=== PATIENT | female | born 1955 | race Caucasian/White ===

== ENCOUNTER 2023-09-27 11:09 | Inpatient (IN) | payer OTHER, MEDICARE, SELFPAY ==
[2023-09-26] VITALS (9 sets, daily range): BP systolic 141–182; BP diastolic 80–96
[2023-09-26 19:01] LABS: % Basophils 0.7 % (0-2); % Eosinophils 4.4 % (0-6); % Immature Granulocytes 0.4 % (0-0.5); % Lymphocytes 26.4 % (20.5-51.1); % Monocytes 10.3 % (1.7-9.3); % Neutrophils 57.8 % (42.2-75.2); Absolute Basophils 0.1 10^3/uL (0-0.2); Absolute Eosinophils 0.3 10^3/uL (0-0.7); Absolute Lymphocytes 1.9 10^3/uL (1.2-3.4); Absolute Monocytes 0.8 10^3/uL (0.1-0.6); Absolute Neutrophils 4.2 10^3/uL (1.4-6.5); Hematocrit 38.2 % (37.0-47.0); Hemoglobin 13.3 g/dL (12.0-16.0); Mean Corp Hgb Conc. 34.8 g/dL (33.0-37.0); Mean Corpuscular Hgb 31.2 pg (27.0-31.0); Mean Corpuscular Volume 89.7 fL (81.0-99.0); Mean Platelet Volume 10.7 fL (7.4-10.4); Nucleated Red Blood Cells % 0 %; Platelet Count 252 10^3/uL (130-400); Red Blood Cell Count 4.26 10^6/uL (4.20-5.40); Red Cell Dist. Width 12.5 % (11.5-14.5); White Blood Cell Count 7.3 10^3/uL (4.8-10.8)
[2023-09-26 19:12] LABS: D-Dimer 0.31 ug/mlFEU (0.00-0.50)
[2023-09-26 19:13] LABS: ALT (SGPT) 20 U/L (0-35); AST (SGOT) 21 U/L (14-36); Albumin 4.2 g/dl (3.5-5.0); Alkaline Phosphatase 44 U/L (38-126); Blood Urea Nitrogen 24 mg/dl (7-17); Calcium 9.8 mg/dl (8.4-10.2); Carbon Dioxide 28 mmol/L (22-30); Chloride 102 mmol/L (98-107); Glucose 207 mg/dl (70-99); Lipase 84 U/L (23-300); Potassium 4.2 mmol/L (3.5-5.1); Sodium 139 mmol/L (135-145); Total Bilirubin 0.4 mg/dl (0.2-1.3); Total Protein 6.6 g/dl (6.3-8.2); eGFR > 60.00
[2023-09-26 19:22] LABS: Troponin I < 0.012 ng/ml
[2023-09-26 21:37] LABS: Troponin I < 0.012 ng/ml
--- NOTE | 2023-09-26 22:18 | ED.GENMED ---
History of Present Illness
General
Chief Complaint: Chest Pain
Source: patient and spouse
Exam Limitations: none
Time Seen by Provider: 09/26/23 18:15
Nursing documentation reviewed up to this point in time: agreed with
Travel History
Have you had any contact with someone who has COVID-19?: No
Do you have any symptoms of coronavirus? Fever > 100 degrees, chills, cough, shortness of breath, sore throat, loss of taste or smell, muscle aches, or headache?: No
History of Present Illness
History of Present Illness:
68-year-old female with a past medical history of diabetes, hyperlipidemia, obesity who presents to the emergency department with her for evaluation of chest pain. Patient reports onset of symptoms over the past few weeks and they have been
intermittent. Over the past 2 days she says that symptoms have been lasting longer and more intense. She describes a pressure sensation in the left chest that radiates towards her scapula and her left arm. She reports symptoms being triggered
with exertion particular when she walks up the stairs. She denies any associated shortness of breath. She denies any cough. Denies any fevers or chills. She denies any edema in her legs. Denies any GI symptoms. She says she is never had
similar symptoms in the past. She denies any known personal cardiac history and has never seen a fitting room checker. She does report that she has a very strong family history of coronary artery disease and AR.
Past History
Past History
ED Past Medical History: None
ED Past Surgical History: None
Social History
Tobacco: Non-smoker
Review of Systems
Review of Systems
All Other Systems: ROS reviewed and negative except as documented in HPI and ROS
Constitutional: Denies fever or chills
EENT: Denies sore throat or runny nose
Respiratory: Denies cough or trouble breathing
Cardiac: Reports chest pain; Denies palpitations or syncope
ABD/GI: Denies abdominal pain, nausea, vomiting or diarrhea
: Denies flank pain
Musculoskeletal: Denies edema, neck pain or back pain
Neurological: Denies dizzy or headache
Phy Exam
Physical Exam
Physical Exam:
General: Awake, alert, oriented x3; no acute distress
Head: Normocephalic, atraumatic
Eyes: Conjunctiva normal, EOMI
Throat: Airway intact, handling secretions
Neck: Trachea midline, supple without meningismus
Lungs: Clear to auscultation bilaterally, no wheezing, rales, rhonchi
Heart: Regular rate and rhythm, no murmurs, gallops, or rubs
Abd: Soft, non distended, nontender
Neuro: Cranial nerves grossly intact, speech fluid
Skin: no rash
Extremities: No edema in extremities, equal pulses in all extremities
Scores
Heart Failure Risk
Heart Failure Risk Score: Not Applicable
Heart Score for Chest Pain Patients
STEMI patient?: No
History: Moderately Suspicious
ECG: Normal
Age: >/= 65 years
Risk Factors: >/= 3 Risk Factors or History of CAD
Troponin: </= Normal Limit
Heart Score for Chest Pain Patients: 5
Heart Score Risk: 20.3% MACE over next 6 weeks
Withdrawal Assessment of Alcohol
Withdrawal Assessment Completed?: Not applicable
Course
Orders/Labs/Results
Orders:
Orders
09/26/23 17:29
EKG [Electrocardiogram (*1)] Urgent
Reason for Study: Chest Pain
EKG- Treatment ONCE
09/26/23 18:46
CR Chest - 2 Views Urgent
Comment:
Reason For Exam: cp
09/26/23 18:49
Complete Blood Count/With Diff Urgent
Comprehensive Metabolic Panel Urgent
D-Dimer Urgent
Lipase Urgent
Troponin I Urgent
09/26/23 21:06
Troponin I Urgent
09/26/23 22:59
Admit/Transfer Patient As Directed
Co-Sign Provider:
Level of Care: Observation services
Assign to:: Telemetry
Physician / Group: elsa stern
Diagnosis: chest pain
Reason for Telemetry: Chest Pain syndromes
Date to Stop Telemetry: 09/28/23
Time to Stop Telemetry: 11:00
09/26/23 23:00
Code Status As Directed
Resuscitation Status: Full Code
09/28/23 11:00
DC Protocol for Telemetry ONCE
Abnormal Lab Results
09/26/23
18:49
MCH 31.2 H pg
(27.0-31.0)
MPV 10.7 H fL
(7.4-10.4)
Absolute Monos (auto) 0.8 H 10^3/uL
(0.1-0.6)
Monocytes % 10.3 H %
(1.7-9.3)
BUN 24 H mg/dl
(7-17)
Creatinine 0.5 L mg/dL
(0.6-1.0)
Glucose 207 H mg/dl
(70-99)
09/26/23 18:49
09/26/23 18:49
Vital Signs
Initial and Last Documented VS:
Initial Vital Signs
Temp Pulse Resp BP Pulse Ox
36.8 C 90 18 154/85 97
09/26/23 17:26 09/26/23 17:26 09/26/23 17:26 09/26/23 17:26 09/26/23 17:26
Last Documented Vital Signs
Temp Pulse Resp BP Pulse Ox
36.8 C 86 20 153/80 95
09/26/23 17:26 09/26/23 23:19 09/26/23 23:19 09/26/23 23:00 09/26/23 23:19
MDM/Problems Addressed
Differential Diagnosis Includes:
Angina/AR, GERD, costochondritis, pneumothorax pneumonia, PE
MDM/Problems Addressed:
68-year-old female presents for evaluation of chest pain over the past few weeks that is increasing in frequency and severity. There is an exertional component she says. Hypertensive but otherwise normal vitals. Physical exam as above. She is
currently chest pain-free. EKG shows no STEMI. Will place an IV check labs including CBC and CMP, troponin's. Check a chest x-ray. Will check a D-dimer. Will monitor on telemetry. Reassess after the above.
CBC unremarkable, CMP no clinically significant abnormalities. Her D-dimer is negative. Troponin negative x 2. Chest x-ray shows no acute disease. Although troponins are undetectable her story is somewhat worrisome for anginal chest pain and she
has HEART score of 5. Case discussed with cardiology recommended admission to the hospital service will plan for inpatient stress test. Case discussed with hospitalist for admission.
Chronic conditions affecting care:
Diabetes, hyperlipidemia, obesity�higher risk for cardiac disease
Acute Exacerbation and/or Progression of Chronic Illness:
Acutely hypertensive
Acute Exacerbation and/or Progression of Chronic Illness: HTN
*Radiology
Radiology exam reviewed: preliminary read by ED provider (No acute disease on chest x-ray) and radiology read reviewed
*Pulse Oximetry
Patient hypoxic: no
*EKG
Interpreted by ED Provider?: Yes
Heart Rate: 90
Rate: normal
Rhythm: sinus
[place]: normal axis
Interval: normal interval
QRS Pattern: normal QRS
Ischemia: no ischemia
*Critical Care Note
Total Time (30-74mins, 75-104mins- exclusive of procedures): Not Applicable
Data Reviewed
Source: patient, records and spouse
Patient Management
Discussion with other providers: Hospitalist (Discussed with hospitalist) and Sprinkling System Installer (Discussed with cardiology)
Escalation/DeEscalation of care consider admission/obs:
Admission indicated
ED Attending Note
-
Portions of this chart may have been created with voice recognition software.� Occasional wrong word or��sound alike� substitutions may have occurred due to the inherent limitations of voice recognition software.
Discharge Plan
Departure
Patient Disposition: Admit
Date of Disposition: 09/26/23
Time of Disposition: 22:48
Admit to doctor: Kamaljit
Presentation/result/management discussed w/ accepting MD/DO: Hospitalist
Patient with high blood pressure during this ER visit?: Yes
Discharge Problem:
Chest pain
Interventions
Interventions:
*General Assessment Last Done: 09/26/23 17:26
ED- Fall Risk Assessment Last Done: 09/26/23 18:40
*ED COVID-19 Vaccine History Last Done: 09/26/23 17:26
ED- Cardiac Assessment Last Done: 09/26/23 18:40
--- NOTE | 2023-09-26 22:37 | HPS.HSE ---
Family Physician
-
Family Physician: Awilda Jacinto
Chief Complaint
-
chest pain
History of Present Illness
68 year old with pMH hypothyroidism, GERD, Type 2 Dm presented to us with left sided chest pain radiating to neck, back, left upper arm, shoulder for past few weeks. it progressive got worse. was taking Aleve with some relief in her symptoms. today
she felt some burning sensation in mid sternum. she gets pain even with rest. took Tums with some relief. stated WATSON. denied dizzy or syncopal episode. denied fever, chills. denied abdominal pain, n,v,d. denied dysuria or hematuria.
chest x ray negative. trop negative. admitting for stress test on Thursday.
Medical History
Past Medical History
Past Medical History: Reports Other
Additional Past Medical History:
hypothyroidism
type 2 Dm
hld
Past Surgical History: Reports Other
Additional Past Surgical History:
c section
tonsillectomy
Social History
Tobacco: Non-smoker
Alcohol: None
Drug: None
Personal:
Living: With Family
Family History
Family History: Not pertinent
Allergies / Home Medications
Allergies reflects when Allergies were last updated in [facility].
Home Medications with original date entered in [facility]
Allergy/Medication List:
Allergies
Allergy/AdvReac Type Severity Reaction Status Date / Time
No Known Allergies Allergy Unverified 08/19/15 21:24
Home Medications
aspirin 325 mg tablet 325 mg PO DAILY 09/26/23
cetirizine 10 mg tablet (Zyrtec) 10 mg PO DAILY 09/26/23
famotidine 10 mg tablet (Pepcid AC) 10 mg PO DAILY 09/26/23
levothyroxine 112 mcg tablet (Synthroid) 112 mcg PO DAILY 09/26/23
metformin 500 mg tablet 500 mg PO BID 09/26/23
rosuvastatin 5 mg tablet 5 mg PO DAILY 09/26/23
Review of Systems
-
Constitutional: Reports No Symptoms
EENT: Reports No Symptoms
Respiratory: Reports No Symptoms
Cardiac: Reports Chest Pain
Abdomen/GI: Reports No Symptoms
: Reports No Symptoms
Musculoskeletal: Reports No Symptoms
Skin: Reports No Symptoms
Neurological: Reports No Symptoms
Endocrine: Reports No Symptoms
Hematologic/Lymphatic: Reports No Symptoms
Psych: Reports No Symptoms
Physical Exam
Vital Signs
Vital Signs
Temp Pulse Resp BP Pulse Ox
98.3 F 84 16 154/91 95
09/26/23 17:26 09/26/23 20:45 09/26/23 20:45 09/26/23 20:15 09/26/23 20:45
Physical Exam
General: Well Developed, Well Nourished and No Apparent Distress
HEENT: NormoCephalic, Moist mucous membranes and Atraumatic
Respiratory: Clear
Cardiac: S1/S2 and Regular Rhythm; No Murmur or Rub
GI: Soft, Non Tender, Non Distended and Normal Bowel Sounds; No Organomegaly
Rectal: Deferred by Provider
Musculoskeletal: No Clubbing, No Cyanosis and No Edema
Skin: No Rash
Neuro: AO x 3 and Nonfocal/grossly intact
Psych: Calm
Laboratory Results
-
09/26/23 18:49
09/26/23 18:49
Laboratory Results
Total Bilirubin 0.4 mg/dl (0.2-1.3) 09/26/23 18:49
AST 21 U/L (14-36) 09/26/23 18:49
ALT 20 U/L (0-35) 09/26/23 18:49
Alkaline Phosphatase 44 U/L (38-126) 09/26/23 18:49
Troponin I < 0.012 ng/ml 09/26/23 21:06
Lipase 84 U/L (23-300) 09/26/23 18:49
Data Reviewed
-
Diagnostic Radiology: Report Reviewed by me
Lab Data: Labs Reviewed by me
Impression/Plan
-
#chest pain with exertion r/o ACS
-trend trop
-plan for stress test on Thursday
-cardiology consulted
-chest x ray with No active cardiopulmonary disease.
-EKG with NSR
#hypothyroidism
-levothyroxine continued
#Type 2 Dm
-sliding scale
-check blood sugar
-daily bgm
-hold metformin
#HLD
-Crestor continued
#DVT prophylaxis
-lovenox
#CODE status
-full code
--- NOTE | 2023-09-26 22:52 | W.PN.UPDATE ---
Update Note
Progress Note Update
This note serves as an addendum to the H&P by automation technician BETHEL Lisa GERONIMO
HPI
68F PMHX of DMT2, Hypothyroid , HLDseen at ER for evaluation of Lt sided CP
- described as CP , also back pain and Lt arm pain for few weeks
- initially intermittent and waxing and waning
- becomes persist tent over last 2 days
- also noted WATSON and fatigue
- Denied diaphoresis
- denied palpitation
- Denied fever
- Not much improved with Aleve
- somewhat worsened CP with climbing steps
Other complaints include mid sternum CP relieve by TUMS
Noted hi BP at ER
- no prior HX HTN
PMHX: DMT2, Hypothyroid , HLD
PSHX: Tonsillectomy
Allergies
Allergy/AdvReac Type Severity Reaction Status Date / Time
No Known Allergies Allergy Unverified 08/19/15 21:24
Home Medications
aspirin 325 mg tablet 325 mg PO DAILY 09/26/23
cetirizine 10 mg tablet (Zyrtec) 10 mg PO DAILY 09/26/23
famotidine 10 mg tablet (Pepcid AC) 10 mg PO DAILY 09/26/23
levothyroxine 112 mcg tablet (Synthroid) 112 mcg PO DAILY 09/26/23
metformin 500 mg tablet 500 mg PO BID 09/26/23
rosuvastatin 5 mg tablet 5 mg PO DAILY 09/26/23
SHX;
Tobacco: Non-smoker
Reviewed VS: noted for BP 180/90 ---> 154/91 HR 80s POx mid 90s
PE
Gen: not toxic , NAD
HEENT: anicteric, no pallor
Neck: supple
Lungs: CTA
Cor: RRR S1 S2
Abdomen: benign exam
GAS STATION MANAGER: AAO3 , NFND
MS: no edema
Psych:appropriate
Data
Unremarkable CBC
BUN 24
Cr 0.5
eGFR > 60
BG 207
TPNI < 0.012
EKG:
NORMAL SINUS RHYTHM
NORMAL ECG
NO PREVIOUS ECGS AVAILABLE
CXR: No active cardiopulmonary disease.
NO PRIOR hospitalist admission:
ASSESSMENT & PLAN
Persistent CP with exertion
- atypical for cardiac origin DDX: musculoskeletal origin
- unremarkable EKG
- NEG TPNI
- Trend TPNI and EKG
- Empiric baby ASA
- check Lipids
- CBC card consult
HLD
- cont. SLOT SUPERVISOR Statin
DMT2
- held Metformin
- add ISS low
Hypothyroid
- cont PT LT4
Hi BP
No prior HX of HTN
- add IV Hydralazine PRN
- f/u BP
DVT Px: LMWH
Code: Full code
Obs TLM
[2023-09-27] VITALS (26 sets, daily range): BP systolic 109–164; BP diastolic 64–90; BMI 36.6
--- NOTE | 2023-09-27 00:05 | PTCARENOTE ---
Pt arrived from ED via stretcher and ambulated to bed. Pt is AAOx3, VSS, and w/o complaints of pain. Pt is resting comfortably w/ call verma within reach.
[2023-09-27 03:30] LABS: Hematocrit 39.2 % (37.0-47.0); Hemoglobin 13.3 g/dL (12.0-16.0); Mean Corp Hgb Conc. 33.9 g/dL (33.0-37.0); Mean Corpuscular Hgb 31.5 pg (27.0-31.0); Mean Corpuscular Volume 92.9 fL (81.0-99.0); Mean Platelet Volume 10.6 fL (7.4-10.4); Platelet Count 242 10^3/uL (130-400); Red Blood Cell Count 4.22 10^6/uL (4.20-5.40); Red Cell Dist. Width 12.4 % (11.5-14.5); White Blood Cell Count 7.1 10^3/uL (4.8-10.8)
[2023-09-27 03:53] LABS: Blood Urea Nitrogen 18 mg/dl (7-17); Carbon Dioxide 25 mmol/L (22-30); Chloride 103 mmol/L (98-107); Estimated Creatinine Clearance 103 ml/min; Glucose 314 mg/dl (70-99); HDL Cholesterol 57 mg/dl; LDL Cholesterol, Calculated 107 mg/dl; Sodium 137 mmol/L (135-145); Total Cholesterol 211 mg/dl (50-199); Triglyceride 239 mg/dl (10-149); Very Low Density Lipoprotein 47 mg/dl (0-30); eGFR > 60.00
[2023-09-27 03:55] LABS: Troponin I 0.015 ng/ml
[2023-09-27] MEDS: SYNTHROID 112 MCG PO (06:33)
[2023-09-27 07:31] LABS: Glucose - Point of Care 186 mg/dl (70-99)
[2023-09-27] MEDS: NOVOLOG FLEXPEN-LOW RESISTANCE 1 UNITS SC ×2 (07:56→17:19)
[2023-09-27] MEDS: HEPARIN 5000 UNITS SC (07:56)
[2023-09-27] MEDS: CRESTOR 5 MG PO ×2 (07:56→11:17)
[2023-09-27] MEDS: LOW STRENGTH ASPIRIN 81 MG PO (07:56)
--- NOTE | 2023-09-27 08:10 | PTCARENOTE ---
Pt. with c/o 5/10 left chest pain and left arm pain. No pain medication is ordered at this time. Dr. Chirinos made aware via tiger text. Pt. NSR on telemonitor.
[2023-09-27 08:22] LABS: Troponin I 0.035 ng/ml
--- NOTE | 2023-09-27 08:25 | PTCARENOTE ---
Critical lab value, troponin 0.035, Dr. sadler made aware via tiger text. No new orders at this time.
[2023-09-27 09:54] LABS: Glycohemoglobin (HgbA1c) 7.9 % (4.0-5.6)
--- NOTE | 2023-09-27 10:09 | W.PN.HOSP.TC ---
Today's Communication/Plan
-
see bold
Assessment / Plan
Assessment / Plan
Gen: NAD, AAOx3.
Eyes: EOMI, PERRLA, no scleral icterus.
Neck: supple.
CV: RRR, +S1/S2, no m/r/g.
Resp: CTAB, no rales, wheezes, or rhonchi.
Abd: +BS, soft, NT, ND
Skin: No rashes.
Neuro: CN 2-12 intact, non-focal.
Psych: Normal mood and affect.
CXR: No active cardiopulmonary disease.
L-sided CP:
-trend trops (0.015, 0.035)
-Appears to be type II NSTEMI. Start heparin gtt, NTG gtt. Likely cath tomorrow.
-discussed at length with Dr. Sherman
-latest ECG (read by me): NSR @ 86, nl axis/intervals (QTc borderline at 452ms), no acute ST/TW changes
-cont ASA/statin
-start Toprol XL
Other problems:
DM2: SSI/accuchecks
Hypothyroidism: cont Levoxyl
Hyperlipidemia: cont statin
Obesity due to excess calories
RN and updated.
FULL/Lovenox
Total time spent on today's encounter was 50 minutes which included time spent in counseling the patient/family regarding diagnosis and treatment plan as listed above, goals of care, and symptom management. Case was discussed with nursing staff,
specialists, and care coordinators/case management. All labs and imaging personally reviewed by me. Remainder the time spent in detailed review of previous records, lab data, imaging, and other medical provider documentation.
Anticipated Discharge: 24 - 48 hours
Subjective/Interval History
-
Date of Service: September 27, 2023
Objective Data
-
Labs:
Laboratory Results
09/27/23
03:14
WBC 7.1
Hgb 13.3
Hct 39.2
Plt Count 242
Sodium 137
Potassium 4.0
Chloride 103
Carbon Dioxide 25
BUN 18 H
Creatinine 0.5 L
Glucose 314 H
Calcium 10.0
Vital Signs:
Vital Signs
Temp Pulse Resp BP Pulse Ox
98.3 F 78 16 152/77 95
09/27/23 07:07 09/27/23 07:07 09/27/23 07:07 09/27/23 07:07 09/27/23 07:07
I&O
09/26/23 09/27/23 09/28/23
06:59 06:59 06:59
Output Total 500 / 500
Balance -500 / -500
--- NOTE | 2023-09-27 10:55 | PTCARENOTE ---
Pt. still c/o 07/28 left chest pain/pressure and left arm pain at this time. Dr. Barone made aware at this time. Orders to follow.
[2023-09-27] MEDS: NITROSTAT (SUBLINGUAL) 0.400000000000000022 MG SL (11:15)
--- NOTE | 2023-09-27 11:15 | PTCARENOTE ---
Sublingual Nitro given as ordered. Chest pain went from a 07/28 to 2. Pt. c/o headache post Nitro dose. VSS.
[2023-09-27] MEDS: CRESTOR 10 MG PO (11:17)
--- NOTE | 2023-09-27 11:17 | CON.CAR ---
Consultation
Consultation Request
Date/Time Consultation Requested: 09/27/2023
Date/Time Consultation Performed: 09/27/2023
Requesting Provider: Dr. Chirinos
Performing Provider: Dr. Sherman
Reason for Consultation: Chest pain
Medical History
-
Chief Complaint: Chest pain
History of Present Illness:
68-year-old female with hyperlipidemia, diabetes, hypothyroidism, obesity, and very strong family history of coronary artery disease presenting with progressive chest pain over the past 2 weeks. The patient states that she has been experiencing
left-sided chest pain/achiness that is worse with exertion (walking upstairs); it goes away with rest after several minutes. There is associated shortness of breath when she gets to the top of the stairs. All 4 grandparents, both of her parents,
and 2 brothers all had coronary artery disease, several requiring CABG.
Past Medical History
Past Medical History: Hypercholesterolemia, Hypothyroidism and NIDDM
Past Surgical History: and Tonsilectomy
Social History
Tobacco: Non-Smoker
Alcohol: None
Drug: None
Personal:
Living: With Family
Family History
Family History: Early CAD (All 4 grandparents, both parents, and 2 brothers)
Allergies / Home Medications
Allergy/AdvReac Type Severity Reaction Status Date / Time
No Known Allergies Allergy Unverified 08/19/15 21:24
�Medication �Instructions �Recorded �Confirmed �Type
aspirin 325 mg tablet 325 mg PO DAILY Heart 09/26/23 09/26/23 History
Disease/Condition
cetirizine 10 mg tablet (Zyrtec) 10 mg PO DAILY Allergies 09/26/23 09/26/23 History
famotidine 10 mg tablet (Pepcid AC) 10 mg PO DAILY Gastrointestinal 09/26/23 09/26/23 History
Issue
levothyroxine 112 mcg tablet 112 mcg PO DAILY Thyroid 09/26/23 09/26/23 History
(Synthroid)
metformin 500 mg tablet 500 mg PO BID Diabetes 09/26/23 09/26/23 History
rosuvastatin 5 mg tablet 5 mg PO DAILY High Cholesterol 09/26/23 09/26/23 History
Review of Systems
-
History Source: Patient
All other systems: Negative unless noted
Physical Exam
Vital Signs
Temp Pulse Resp BP Pulse Ox
98.3 F 92 16 164/83 95
09/27/23 07:07 09/27/23 11:15 09/27/23 07:07 09/27/23 11:15 09/27/23 07:07
Lab Results
09/27/23 03:14
Troponin I 0.035 ng/ml H* D 09/27/23 07:36
Physical Exam
General: No Apparent Distress and Comfortable
HEENT: Normocephalic
Respiratory: Clear
Cardiac: S1/S2 and Regular Rhythm
Breast: Deferred by me
GI: Soft and Non Tender
Rectal: Deferred by Provider
Musculoskeletal: No Clubbing, No Cyanosis and No Edema
Skin: Warm and Dry
Neuro: AO x 3
Psych: Calm
Impression / Plan
-
68-year-old female with hyperlipidemia, diabetes, hypothyroidism, obesity, and very strong family history of coronary artery disease presenting with progressive chest pain over the past 2 weeks. The patient states that she has been experiencing
left-sided chest pain/achiness that is worse with exertion (walking upstairs); it goes away with rest after several minutes. There is associated shortness of breath when she gets to the top of the stairs. All 4 grandparents, both of her parents,
and 2 brothers all had coronary artery disease, several requiring CABG.
ACS/UA/NSTEMI:
-The patient has recurrent chest pain this a.m.; troponin is now mildly increasing, which appears to be consistent with an NSTEMI.
-Has significant risk factors for heart disease as outlined above.
-Will start the patient on a heparin drip and nitroglycerin drip.
-Will start Toprol-XL 25 mg daily.
-Will increase rosuvastatin from 5 mg daily to 20 mg daily.
-Discussed with Hospitalist; patient will be transferred to IVU.
-Will arrange cardiac catheterization for tomorrow morning; n.p.o. after midnight.
-Echocardiogram tomorrow.
Hypertension--new diagnosis:
-Adding Toprol-XL as above; will medically optimized throughout hospitalization.
Hyperlipidemia:
-LDL is not at goal (less than 55).
-Increasing rosuvastatin from 5 mg to 20 mg daily.
Diabetes:
-Hemoglobin A1c 7.9%.
-Management as per primary Hospitalist.
Hypothyroidism:
-On Synthroid; management as per primary Hospitalist.
Obesity:
-Weight loss recommended.
Data Reviewed
-
EKG: Tracing Personally Visualized and interpreted (Sinus rhythm)
Labs: Labs Reviewed by me and Discussed with Physician (Primary Hospitalist)
[2023-09-27] MEDS: TOPROL XL 25 MG PO (11:19)
[2023-09-27] MEDS: LOW STRENGTH ASPIRIN 324 MG PO (11:28)
[2023-09-27 11:34] LABS: Glucose - Point of Care 228 mg/dl (70-99)
[2023-09-27] MEDS: NOVOLOG FLEXPEN-LOW RESISTANCE 2 UNITS SC (11:35)
[2023-09-27 11:39] LABS: Hematocrit 39.2 % (37.0-47.0); Hemoglobin 13.4 g/dL (12.0-16.0); Mean Corp Hgb Conc. 34.2 g/dL (33.0-37.0); Mean Corpuscular Hgb 31.7 pg (27.0-31.0); Mean Corpuscular Volume 92.7 fL (81.0-99.0); Mean Platelet Volume 10.4 fL (7.4-10.4); Platelet Count 229 10^3/uL (130-400); Red Blood Cell Count 4.23 10^6/uL (4.20-5.40); Red Cell Dist. Width 12.3 % (11.5-14.5)
--- NOTE | 2023-09-27 11:45 | PTCARENOTE ---
Report called to IVU GEOFF Aburto. Pt. and updated with plan to transfer pt. to room 2244.
[2023-09-27 11:49] LABS: APTT 25.2 Sec (23.4-35.0)
--- NOTE | 2023-09-27 12:00 | PTCARENOTE ---
Pt. transferred with all belongings to [facility]. Pt. stable at time of transfer. Chest pain now at a 04/29.
[2023-09-27] MEDS: HEPARIN 25000 UNITS/250 ML IV (12:19)
[2023-09-27] MEDS: HEPARIN 4000 UNITS IV (12:26)
[2023-09-27] MEDS: NITROGLYCERIN PREMIX 250 IV (12:29)
--- NOTE | 2023-09-27 12:46 | PTCARENOTE ---
Received patient from to 2243 with c/o chest pain and positive troponin. Oriented to room and plan of care. Given heparin bolus and infusion started at 1000 units/hr. Patient rates chest pain presently as a /10, started on NTG gtt at 5mcg/min.
SR on the monitor, assisted to the bedside commode to move her bowels. at the bedside, call verma in reach.
[2023-09-27 14:45] LABS: Troponin I 0.088 ng/ml
[2023-09-27 17:19] LABS: Glucose - Point of Care 156 mg/dl (70-99)
--- NOTE | 2023-09-27 18:32 | PTCARENOTE ---
Patient resting in bed, using bedside commode. IV heparin and IV NTG infusing. Patient states pain is a minimal 1/10 mild discomfort left chest, non-radiating and now is 'barely' there. Aware she is to be NPO after midnight for cardiac cath,
at the bedside, call verma in reach.
[2023-09-27 20:10] LABS: APTT 70.2 Sec (23.4-35.0)
[2023-09-27] MEDS: PEPCID 10 MG PO (20:15)
[2023-09-27 20:23] LABS: Troponin I 0.131 ng/ml
[2023-09-27 22:11] LABS: Glucose - Point of Care 163 mg/dl (70-99)
[2023-09-27] MEDS: TYLENOL 650 MG PO (23:26)
--- NOTE | 2023-09-27 23:59 | PTCARENOTE ---
Pt called nursing to room at 2315 stating she was having 5 out of 10 pain chest pain radiating up to jaw and through to back. O2 at 3 lit n/c placed. NTG gtt adjusted as per protocol for CP. Currently infusing at 30 mcq with no change in pain. Pt
also medicated with Tylenol for c/o h/a. B/P stable.
PA made aware Morphine order obtained. awaiting clearance from pharmacy.
[2023-09-28] VITALS (17 sets, daily range): BP systolic 98–145; BP diastolic 62–80; BMI 36.1
[2023-09-28] MEDS: MORPHINE SULFATE 1 MG IV (00:07)
--- NOTE | 2023-09-28 00:41 | PTCARENOTE ---
Pt down to a a pain level of 2 out of 10 after receiving morphine1 mg iv. Pain is no further radiating into jaw just chest and through back. Ntg gtt continued at 30 mcq, Heparin gtt at 1100 unit/hr and O2 at 3 lit n/c. call verma within reach. Pt
stated she wanted to rest and try to fall asleep. PA on unit aware of improved cp after ntg.
--- NOTE | 2023-09-28 03:01 | PTCARENOTE ---
Pt called nursing to room to use bsc. Pain free at present. Ntg continued at 30 mcq. vs and labs completed in addition to ecg. o2 removed per pt request. Pt with hx of allergies and having increased nasal secretions this morning. Pt remains npo for
cath.
[2023-09-28 03:05] LABS: Hematocrit 34.2 % (37.0-47.0); Hemoglobin 12.2 g/dL (12.0-16.0); Mean Corp Hgb Conc. 35.7 g/dL (33.0-37.0); Mean Corpuscular Hgb 31.9 pg (27.0-31.0); Mean Corpuscular Volume 89.3 fL (81.0-99.0); Mean Platelet Volume 10.4 fL (7.4-10.4); Platelet Count 228 10^3/uL (130-400); Red Blood Cell Count 3.83 10^6/uL (4.20-5.40); Red Cell Dist. Width 12.4 % (11.5-14.5); White Blood Cell Count 13.3 10^3/uL (4.8-10.8)
[2023-09-28 03:23] LABS: APTT 64.4 Sec (23.4-35.0); Blood Urea Nitrogen 20 mg/dl (7-17); Calcium 9.5 mg/dl (8.4-10.2); Carbon Dioxide 21 mmol/L (22-30); Chloride 106 mmol/L (98-107); Estimated Creatinine Clearance 103 ml/min; Glucose 223 mg/dl (70-99); Potassium 4.1 mmol/L (3.5-5.1); Sodium 137 mmol/L (135-145); eGFR > 60.00
[2023-09-28 03:33] LABS: Troponin I 0.101 ng/ml
[2023-09-28 07:02] LABS: Glucose - Point of Care 241 mg/dl (70-99)
[2023-09-28] MEDS: NOVOLOG FLEXPEN-LOW RESISTANCE 2 UNITS SC (09:05)
[2023-09-28] MEDS: SYNTHROID 112 MCG PO (09:06)
[2023-09-28] MEDS: LOW STRENGTH ASPIRIN 81 MG PO (09:07)
[2023-09-28] MEDS: PEPCID 10 MG PO (09:07)
[2023-09-28] MEDS: TOPROL XL 25 MG PO (09:08)
--- NOTE | 2023-09-28 09:31 | PTCARENOTE ---
Received patient this morning resting in bed. IV NTG infusing at 30mcg/min, IV heparin infusing at 1200 units/hr. Patient denies chest pain at this time, does have a headache and some mild nausea. Report given to laboratory supervisor, waiting in the
room.
--- NOTE | 2023-09-28 09:34 | W.PN.HOSP.TC ---
Today's Communication/Plan
-
see bold
Assessment / Plan
Assessment / Plan
Gen: NAD, AAOx3.
Eyes: EOMI, PERRLA, no scleral icterus.
Neck: supple.
CV: remains RRR, +S1/S2, no m/r/g.
Resp: remains CTAB, no rales, wheezes, or rhonchi.
Skin: No rashes.
Neuro: CN 2-12 intact, non-focal.
Psych: Normal mood and affect.
CXR: No active cardiopulmonary disease.
Acute type II NSTEMI:
-presented with L-sided CP
-ECG (read by me): NSR @ 86, nl axis/intervals (QTc borderline at 452ms), no acute ST/TW changes
-trops peaked at 0.131
-heparin/NTG gtts started 09/27/23AM
-cardiac cath 09/28/23: PCI to 90% RCA lesion
-cont ASA/statin/BB/Ticagrelor
Other problems:
DM2: SSI/accuchecks
Hypothyroidism: cont Levoxyl
Hyperlipidemia: cont statin
Obesity due to excess calories
RN and updated.
FULL/Lovenox
Anticipated Discharge: Within 24 hours
Subjective/Interval History
-
Date of Service: September 28, 2023
Denies chest pain or shortness of breath.
Objective Data
-
Labs:
Laboratory Results
09/28/23 09/28/23
02:56 09:55
WBC 13.3 H
Hgb 12.2
Hct 34.2 L
Plt Count 228
APTT 64.4 H Pending
Sodium 137
Potassium 4.1
Chloride 106
Carbon Dioxide 21 L
BUN 20 H
Creatinine 0.4 L
Glucose 223 H
Calcium 9.5
Vital Signs:
Vital Signs
Temp Pulse Resp BP Pulse Ox
98.1 F 81 16 121/71 94
09/28/23 06:57 09/28/23 07:30 09/28/23 06:57 09/28/23 06:57 09/28/23 06:57
I&O
09/27/23 09/28/23 09/29/23
06:59 06:59 06:59
Intake Total 827.3 / 827.3
Output Total 500 / 500
Balance -500 / -500 827.3 / 827.3
--- NOTE | 2023-09-28 09:42 | W.PN.CD ---
Today's Communication / Plan
-
Cardiac catheterization today.
Impression / Plan
-
Impression/Plan: 68-year-old female with hyperlipidemia, diabetes, hypothyroidism, obesity, and very strong family history of coronary artery disease presenting with progressive exertional chest pain and NSTEMI.
#NSTEMI:
-Acute.
-The patient has recurrent chest pain overnight, resolved with nitro gtt.
-Troponin peaked at 0.131.
-Numerous significant risk factors for heart disease.
-Echocardiogram pending.
-Cardiac catheterization today to clarify coronary anatomy.
-Continue aspirin, heparin gtt, metoprolol and nitro gtt. Rosuvastatin increased to 20 mg.
#Hypertension
-New diagnosis.
-Metoprolol succinate added. BP controlled (in the context of nitro gtt as well).
-Adjust medications as indicated after cardiac catheterization.
#Hyperlipidemia
-Chronic.
-Total cholesterol = 211, LDL = 107, HDL = 57, Triglycerides = 239.
-Increasing rosuvastatin from 5 mg to 20 mg daily.
-Goal LDL < 55.
#Diabetes
-Chronic, uncontrolled.
-Hemoglobin A1c 7.9%.
-Metformin on hold due to cath.
-Given DM + obesity, the patient would benefit from GLP-1 (semaglutide) at the time of discharge.
#Hypothyroidism:
-Chronic, stable.
-On levothyroxine; management as per primary Hospitalist.
#Obesity:
-Chronic, stable.
-Weight loss recommended.
-GLP-1 agonists.
Subjective/Interval History:
No acute events.
She remains chest pain free on nitro gtt at 30 mcg/min.
Physical Exam
Vital Signs/Labs
Vital Signs
Temp Pulse Resp BP Pulse Ox
36.7 C 81 16 121/71 94
09/28/23 06:57 09/28/23 07:30 09/28/23 06:57 09/28/23 06:57 09/28/23 06:57
09/26/23 09/27/23 09/28/23
11:59 11:59 11:59
Actual Weight 96.7 kg 95.2 kg
09/28/23 02:56
09/28/23 02:56
APTT 64.4 Sec (23.4-35.0) H 09/28/23 02:56
Triglycerides 239 mg/dl (10-149) H 09/27/23 03:14
LDL Cholesterol, Calc 107 mg/dl 09/27/23 03:14
VLDL Cholesterol, Calc 47 mg/dl (0-30) H 09/27/23 03:14
HDL Cholesterol 57 mg/dl 09/27/23 03:14
LAB Results
09/26/23 09/26/23 09/27/23
18:49 21:06 00:03
Troponin I < 0.012 < 0.012 Cancelled
09/27/23 09/27/23 09/27/23
03:14 06:03 07:36
Troponin I 0.015 D Cancelled 0.035 H* D
09/27/23 09/27/23 09/27/23
13:43 14:12 19:49
Troponin I Cancelled 0.088 H* D 0.131 H* D
09/28/23
02:56
Troponin I 0.101 H*
Physical Exam
Constitutional: No acute distress and Comfortable
EENT: Anicteric and Moist mucous membranes
Cardiovascular: Rhythm & rate is regular, Pedal edema is absent, JVD pressure is normal, S1S2 is normal and Murmur/rub/gallop absent
Respiratory: Respiratory effort normal, Lungs clear to auscul., Wheeze Absent, Crackles Absent and Rhonchi Absent
GI: Soft, Distention absent, Flat, Non tender and Normal bowel sounds
Neuro/Psych: AO x 3
Data Reviewed
-
Date of Service: September 28, 2023
Medical Decision Making: Reviewed Test Results, Independent Historian Assessment and Test Interpretation
EKG: Tracing Personally Visualized and interpreted and Report Reviewed by me
X-Ray/CT/US/MRI/NUC/PET: Image Personally Visualized and interpreted and Report Reviewed by me
Labs: Labs Reviewed by me
[2023-09-28 10:44] LABS: ACT-LR - POC 247 Seconds (116-155)
--- NOTE | 2023-09-28 10:49 | ITS.CL.ANGIO ---
Storekeeper Steward - Angioplasty
Angioplasty
Procedure Report:
CARDIAC CATHETERIZATION REPORT
Date of Procedure: 09/28/2023
Referring: Dhiraj Sherman M.D.
INDICATION: Non-ST elevation myocardial infarction.
PROCEDURE:
1. Left heart catheterization.
2. Coronary angiography
3. Successful PCI of the right coronary artery.
ACCESS:
6 Micronesian right radial artery.
CATHETERS:
1. 4 Micronesian JR4.
2. 5 Micronesian JL 3.5.
3. 5 Micronesian MPA 2.
4. 6 Micronesian AL 0.75 guiding catheter.
HEMODYNAMIC DATA
Weight (kg): 94.8
AO (s/d/x, mmHg): 113/67/90
LV (s/x mmHg): 116/17 (A wave to 26)
LEFT VENTRICULOGRAPHY: Not performed.
CORONARY ANGIOGRAPHY
Dominance: Right.
Left Main: Normal size, trifurcating vessel with some mild distal tapering.
LAD: Normal size vessel giving rise to several small diagonals. There is a 20% lesion in the ostium of the vessel. There are minor luminal irregularities elsewhere.
Ramus: Medium to large size vessel supplying the majority of the lateral wall. There are minor luminal irregularities in the proximal margin.
Circumflex: Small size, nondominant vessel that is essentially a single obtuse marginal supplying the lateral and inferolateral wall. There are minor luminal irregularities.
RCA: Large size, dominant vessel. There is a long, atherosclerotic plaque running from the proximal vessel all the way to the distal vessel. The vessel normalizes after the proximal. The lesion culminates in a focal, 90% lesion in the
proximal/mid section of the artery.
INTERVENTION(S)
1. Successful PCI of the 90% proximal/mid RCA lesion with stent extension over the entire diseased section (Overlapping Xience Skypoint 3.0 x 38 HERMELINDO, 3.5 x 28 HERMELINDO, postdilated with a 3.5 NC balloon) with reduction in stenosis to 0%, maintaining
FRANTZ-3 flow.
Narrative:
The decision was made to proceed with percutaneous coronary intervention. The diagnostic catheter was removed over a wire and a 6Fr AL 0.75 guiding catheter was advanced to the aortic root and seated in the right coronary artery. Additional heparin
was given and a Power Turn Flex wire was advanced into the RPDA. The 90% proximal/mid RCA lesion was predilated with a 2.0 x 12 semi-compliant balloon to 12 lynne. The semi-compliant balloon was removed and a Xience Skypoint 3.0 x 38 drug-eluting
stent was advanced into the distal RCA. Meticulous care was taken to make sure that the distal aspect of the stent covered the entire atherosclerotic portion of the mid RCA to the point where the RCA normalized. The stent was deployed at 12
atmospheres. The stent balloon was pulled back in the proximal RCA and the proximal RCA was dilated with the stent balloon. We also took this opportunity to use the stent balloon for stent length measurement. The stent balloon was withdrawn. A
Xience Skypoint 3.5 x 28 stent was advanced into the proximal/mid RCA. Care was taken to ensure that the distal aspect of the proximal stent was overlapping with the proximal aspect of the distal stent. Once we were satisfied with this coverage,
the stent was deployed to 12 lynne. The stent balloon was removed. A 3.5 x 20 noncompliant balloon was advanced into the distal stent and the entire stented segment was postdilated to 14 atmospheres. Angiography was performed in orthogonal views,
confirming good stent expansion and an excellent angiographic result. The coronary wire was withdrawn and the guide was disengaged from the artery. The catheter was removed over a standard J-wire.
Closure Device: Vascular band.
Radiation (mGy): 631.14
DAP (cm2.Gy): 40.7196
Fluoroscopy time (minutes): 10.4
Sedation time (minutes): 51
CONCLUSIONS
1. Right dominant circulation with 20% lesion in the ostium of the LAD and a long atherosclerotic plaque running from the proximal RCA through the mid RCA, normalizing the distal RCA just beyond the crux, culminating in a 90% lesion in the
proximal/mid RCA, status post successful PCI of the entire diseased RCA segment (overlapping Xience Skypoint 3.0 x 38 HERMELINDO, 3.5 x 28 HERMELINDO, postdilated with a 3.5 NC balloon) with reduction in all stenoses to 0%, maintaining FRANTZ-3 flow.
2. Mildly elevated filling pressures (LVEDP = 17 mmHg at 94.8 kg) with diastolic dysfunction (A wave to 26 mmHg).
RECOMMENDATIONS:
1. Expectant management after cardiac catheterization via right radial approach.
2. Limited weight bearing on the right wrist for one week.
3. Dual antiplatelet therapy with aspirin anticoagulant for at least 12 months, followed by aspirin indefinitely.
4. Echocardiogram ordered and pending.
5. Guideline directed medical therapy as hemodynamics will tolerate.
6. Aggressive risk factor modification including high-dose, high potency statin.
7. Referral to cardiac rehab.
Copy to: Dhiraj Sherman M.D.
Michael Reyes DO, FACC, FACP
[2023-09-28] MEDS: NSS 1000 IV (11:11)
--- NOTE | 2023-09-28 11:28 | PTCARENOTE ---
Received patient from the label coder at 1100 after PCI with stents to the RCA x 2 via R radial. Radial band in place, pulse ox 96% on RA, fingers cool but radial pulse palpable. Post EKG done, at the bedside, monitoring VS. Echo being done at
the bedside now.
[2023-09-28 12:05] LABS: Glucose - Point of Care 191 mg/dl (70-99)
[2023-09-28] MEDS: NOVOLOG FLEXPEN-LOW RESISTANCE 1 UNITS SC ×2 (12:07→18:30)
[2023-09-28 12:33] LABS: ACT-LR - POC > 397 Seconds (116-155)
--- NOTE | 2023-09-28 13:14 | PTCARENOTE ---
Resting in bed, was assisted to the bathroom and voided qs. Dressing with band right wrist is dry and intact with palpable radial pulse and pulse ox of 96% on right hand. Patient states she feels 'off', like her 'GI tract' is 'off'. States she is
belching and passing flatus, not much of an appetite with her lunch. Also states her head doesn't seem right yet from anesthesia given in bed laborer. Encouraged to drink fluids and try to rest, at the bedside, VSS, call verma in reach.
[2023-09-28] MEDS: PROTONIX 40 MG PO (13:59)
[2023-09-28] MEDS: MAALOX 30 ML PO (13:59)
--- NOTE | 2023-09-28 14:19 | CM ---
CM following for DC planning needs.
Met w/ patient and spouse at bedside to complete initial assessment.
Pt. resides in a private, 2 story home w/ spouse.
Functionally, patient is indep. at baseline w/ ADLs, mobility without the use of any assisted device.
Pt. has Rx plan and uses [facility] in [place] for prescription needs.
Anticipated DC plan is for home, no needs.
CM to follow.
--- NOTE | 2023-09-28 14:36 | PTCARENOTE ---
Patient complaining of her 'GI tract' not feeling right. Belching and passing flatus, does not feel nauseated but not much of an appetite. Stating her teeth hurt, and feels like she's having trouble catching her breath. VSS, pulse ox 98% on RA.
Assisted to the bathroom and sitting upright in recliner chair. Notified Margarita Colon NP. Repeat EKG done, patient given PO protonix and maalox, placed on 2L NC. States she is feeling a little better now. Radial band removed from right wrist, dressing
is dry and intact. Call verma in reach.
--- NOTE | 2023-09-28 15:29 | CM ---
[employer] insurance, .
Pt. has high yearly deductible of 4900. Once met, patient would still be responsible for 25% of cost.
I can provide free 30 d coupon plus a monthly coupon but monthly coupon will bring down cost to approx. 259/mo.
TT to DIANE to update. I will inform pt.
[2023-09-28] MEDS: CRESTOR 20 MG PO (17:07)
[2023-09-28] MEDS: LOVENOX 40 MG SC (17:07)
[2023-09-28 17:33] LABS: Glucose - Point of Care 192 mg/dl (70-99)
[2023-09-28] MEDS: BRILINTA 90 MG PO (19:20)
[2023-09-28 21:36] LABS: Glucose - Point of Care 246 mg/dl (70-99)
[2023-09-28] MEDS: TYLENOL 650 MG PO (21:47)
--- NOTE | 2023-09-29 00:17 | PTCARENOTE ---
At approx 2140 pt called nursing to room with varying complaints. Pt c/o discomfort at right radial site/. DDI with no swelling or hematoma noted, weak pulse. Pt then c/po b/l achiness in arms and stated she thought it was coming from 'cholesterol
medicine'. Pt medicated with Tylenol.
Pt resting afterwards with spending the night in pts room. Sinus on telemetry. call verma within reach.
[2023-09-29 04:43] VITALS: BP 125/74
[2023-09-29] MEDS: SYNTHROID 112 MCG PO (04:47)
[2023-09-29] MEDS: TYLENOL 650 MG PO (04:47)
[2023-09-29 05:04] LABS: Hematocrit 36.7 % (37.0-47.0); Hemoglobin 12.5 g/dL (12.0-16.0); Mean Corp Hgb Conc. 34.1 g/dL (33.0-37.0); Mean Corpuscular Hgb 31.2 pg (27.0-31.0); Mean Corpuscular Volume 91.5 fL (81.0-99.0); Mean Platelet Volume 10.2 fL (7.4-10.4); Platelet Count 215 10^3/uL (130-400); Red Blood Cell Count 4.01 10^6/uL (4.20-5.40); Red Cell Dist. Width 12.4 % (11.5-14.5); White Blood Cell Count 9.7 10^3/uL (4.8-10.8)
--- NOTE | 2023-09-29 05:17 | PTCARENOTE ---
Pt medicated with Tylenol for c/o joint pain. Pt states she 'think its from the higher dose of statin'. Pt encouraged to speak with stamper blocker today.
[2023-09-29 05:30] LABS: Blood Urea Nitrogen 14 mg/dl (7-17); Calcium 9.2 mg/dl (8.4-10.2); Carbon Dioxide 23 mmol/L (22-30); Chloride 108 mmol/L (98-107); Estimated Creatinine Clearance 102 ml/min; Glucose 183 mg/dl (70-99); HDL Cholesterol 54 mg/dl; LDL Cholesterol, Calculated 95 mg/dl; Potassium 3.9 mmol/L (3.5-5.1); Sodium 139 mmol/L (135-145); Total Cholesterol 187 mg/dl (50-199); Triglyceride 194 mg/dl (10-149); Very Low Density Lipoprotein 38 mg/dl (0-30); eGFR > 60.00
[2023-09-29 07:01] VITALS: BP 122/72
[2023-09-29 07:25] VITALS: BP 122/72
[2023-09-29 07:26] LABS: Glucose - Point of Care 258 mg/dl (70-99)
[2023-09-29] MEDS: ZESTRIL 5 MG PO (07:43)
[2023-09-29] MEDS: LOW STRENGTH ASPIRIN 81 MG PO (07:43)
[2023-09-29] MEDS: PEPCID 10 MG PO (07:43)
[2023-09-29] MEDS: TOPROL XL 25 MG PO (07:44)
[2023-09-29] MEDS: PROTONIX 40 MG PO (07:44)
[2023-09-29] MEDS: NOVOLOG FLEXPEN-LOW RESISTANCE 3 UNITS SC (07:45)
[2023-09-29] MEDS: PLAVIX 600 MG PO (07:47)
--- NOTE | 2023-09-29 08:10 | W.PN.HOSP.TC ---
Addendum entered and electronically signed by Jerod Chirinos MD 09/29/23 11:33:
Case discussed with Dr. Reyes and he has cleared the patient for discharge.
Total time spent on d/c = 33 min. This included today's physical exam, progress note, review of laboratory and diagnostic data, preparation of discharge documents and prescriptions, and discussions about the pt's hospital course and discharge plan
with the patient and other medical information officer involved in the patient's care.
Original Note:
Today's Communication/Plan
-
see bold
Assessment / Plan
Assessment / Plan
Gen: NAD, AAOx3.
Eyes: EOMI, PERRLA, no scleral icterus.
Neck: supple.
CV: continues to remain RRR, +S1/S2, no m/r/g.
Resp: continues to remain CTAB, no rales, wheezes, or rhonchi.
Skin: No rashes.
Neuro: remains CN 2-12 intact, non-focal.
Psych: Normal mood and affect.
CXR: No active cardiopulmonary disease.
Acute type II NSTEMI:
-presented with L-sided CP
-ECG (read by me): NSR @ 86, nl axis/intervals (QTc borderline at 452ms), no acute ST/TW changes
-trops peaked at 0.131
-heparin/NTG gtts started 09/27/23AM, now off
-cardiac cath 09/28/23: PCI to 90% RCA lesion
-cont ASA/statin/BB/Ticagrelor
Other problems:
DM2: SSI/accuchecks
Hypothyroidism: cont Levoxyl
Hyperlipidemia: cont statin
Obesity due to excess calories
RN updated
FULL/Lovenox
Medically cleared for d/c pending cardiology.
Total time spent on d/c = 31 min. This included today's physical exam, progress note, review of laboratory and diagnostic data, preparation of discharge documents and prescriptions, and discussions about the pt's hospital course and discharge plan
with the patient and other medical information officer involved in the patient's care.
Anticipated Discharge: Today
Subjective/Interval History
-
Date of Service: September 29, 2023
c/o pain in both wrists and arms. Denies CP/SOB.
Objective Data
-
Labs:
Laboratory Results
09/29/23
04:57
WBC 9.7
Hgb 12.5
Hct 36.7 L
Plt Count 215
Sodium 139
Potassium 3.9
Chloride 108 H
Carbon Dioxide 23
BUN 14
Creatinine 0.4 L
Glucose 183 H
Calcium 9.2
Vital Signs:
Vital Signs
Temp Pulse Resp BP Pulse Ox
98.4 F 87 16 122/72 96
09/29/23 07:25 09/29/23 07:44 09/29/23 07:25 09/29/23 07:44 09/29/23 07:25
I&O
09/28/23 09/29/23 09/30/23
06:59 06:59 06:59
Intake Total 827.3 / 827.3 1280 / 1280
Balance 827.3 / 827.3 1280 / 1280
--- NOTE | 2023-09-29 10:19 | PN.CDI ---
Addendum entered and electronically signed by Jerod Chirinos MD 09/29/23 11:18:
Documentation is complete
Original Note:
CDI
- -
CDI:
Physician Documentation Request
Admit Date: 09/27/23 11:09
Dear Doctor Candis,
Clinical Indicators:
Patient admitted with chest pain.
09/26 Cardiology consult, 'ACS/UA/NSTEMI'
09/27 PN, 'Acute type II NSTEMI'
09/27 Cardiac Cath: PCI to 90% RCA lesion
Due to potentially conflicting documentation, please clarify the type of NSTEMI:
Type I NSTEMI due to ACS
Type II NSTEMI due to demand ischemia
Other, please specify
Use of terms such as suspected, likely, concern for, or probable (associated with a specific diagnosis that is being evaluated, monitored, or treated as if it exists) are acceptable and can be coded in the inpatient setting, when documented at the
time of discharge.
Thank you,
MILAGROS Trevino RN
CDI Specialist
available via tiger text
Please use your independent medical judgment in providing your response.
[2023-09-29 11:14] VITALS: BP 124/79
--- NOTE | 2023-09-29 11:24 | CM ---
CM following for DC planning needs.
Met w/ patient and spouse at bedside/
Reviewed estimated cost of Brilinta, annual deductible and coupons.
Pt. informs that she is now on Plavix due to cost. Due to this, no need for coupons as Plavix has a generic option.
Plan is for home, no needs.
CM will cont. to follow.
--- NOTE | 2023-09-29 11:30 | W.PN.CD ---
Today's Communication / Plan
-
Stable on current medications.
Stable for outpatient follow up with cardiology.
Impression / Plan
-
Impression/Plan: 68-year-old female with hyperlipidemia, diabetes, hypothyroidism, obesity, and very strong family history of coronary artery disease presenting with progressive exertional chest pain and NSTEMI.
#NSTEMI:
-Acute.
-The patient has recurrent chest pain overnight, resolved with nitro gtt.
-Troponin peaked at 0.131. Echo shows normal LV function.
-S/P PCI to the proximal/mid RCA (overlapping Xience Skypoint 3.0 x 38 HERMELINDO, 3.5 x 28 HERMELINDO, post dilated with a 3.5 NC balloon).
-Rosuvastatin increased to 20 mg daily.
-Ticagrelor is prohibitively expensive. Loaded with clopidogrel 600 mg this morning.
-Continue metoprolol, lisinopril (new), aspirin, clopidogrel and rosuvastatin.
#Hypertension
-New diagnosis.
-Control with metoprolol and lisinopril.
#Hyperlipidemia
-Chronic.
-Total cholesterol = 211, LDL = 107, HDL = 57, Triglycerides = 239.
-Continue rosuvastatin 20 mg daily.
-Goal LDL < 55.
-If she develops intractable statin related myalgia, we will transition to PCSK9i or inclisiran as an outpatient.
#Diabetes
-Chronic, uncontrolled.
-Hemoglobin A1c 7.9%.
-Metformin on hold due to cath. OK to restart tomorrow.
-Given DM + obesity, the patient would benefit from GLP-1 (semaglutide) as an outpatient.
#Hypothyroidism:
-Chronic, stable.
-On levothyroxine; management as per primary Hospitalist.
#Obesity:
-Chronic, stable.
-Weight loss recommended.
-GLP-1 agonists.
Subjective/Interval History:
S/P PCI to the RCA yesterday.
Statin related UE discomfort overnight.
DATA:
Cardiac Catheterization/PCI, 09/28/2023:
CONCLUSIONS
1. Right dominant circulation with 20% lesion in the ostium of the LAD and a long atherosclerotic plaque running from the proximal RCA through the mid RCA, normalizing the distal RCA just beyond the crux, culminating in a 90% lesion in the
proximal/mid RCA, status post successful PCI of the entire diseased RCA segment (overlapping Xience Skypoint 3.0 x 38 HERMELINDO, 3.5 x 28 HERMELINDO, postdilated with a 3.5 NC balloon) with reduction in all stenoses to 0%, maintaining FRANTZ-3 flow.
2. Mildly elevated filling pressures (LVEDP = 17 mmHg at 94.8 kg) with diastolic dysfunction (A wave to 26 mmHg).
TTE, 09/28/2023:
CONCLUSIONS
Normal biventricular size and systolic function without regional wall motion
abnormality.
Mild concentric left ventricular hypertrophy.
No significant valvular disease.
No prior study available for comparison.
Physical Exam
Vital Signs/Labs
Vital Signs
Temp Pulse Resp BP Pulse Ox
36.9 C 77 16 124/79 97
09/29/23 07:25 09/29/23 11:15 09/29/23 07:25 09/29/23 11:14 09/29/23 08:30
09/27/23 09/28/23 09/29/23
11:59 11:59 11:59
Actual Weight 96.7 kg 95.2 kg
09/29/23 04:57
09/29/23 04:57
APTT Cancelled 09/28/23 09:55
Triglycerides 194 mg/dl (10-149) H 09/29/23 04:57
LDL Cholesterol, Calc 95 mg/dl 09/29/23 04:57
VLDL Cholesterol, Calc 38 mg/dl (0-30) H 09/29/23 04:57
HDL Cholesterol 54 mg/dl 09/29/23 04:57
LAB Results
09/26/23 09/26/23 09/27/23
18:49 21:06 00:03
Troponin I < 0.012 < 0.012 Cancelled
09/27/23 09/27/23 09/27/23
03:14 06:03 07:36
Troponin I 0.015 D Cancelled 0.035 H* D
09/27/23 09/27/23 09/27/23
13:43 14:12 19:49
Troponin I Cancelled 0.088 H* D 0.131 H* D
09/28/23
02:56
Troponin I 0.101 H*
Physical Exam
Constitutional: No acute distress and Comfortable
EENT: Anicteric and Moist mucous membranes
Cardiovascular: Rhythm & rate is regular, Pedal edema is absent, JVD pressure is normal, S1S2 is normal and Murmur/rub/gallop absent
Respiratory: Respiratory effort normal, Lungs clear to auscul., Wheeze Absent, Crackles Absent and Rhonchi Absent
GI: Soft, Distention absent, Flat, Non tender and Normal bowel sounds
Neuro/Psych: AO x 3
Other: Cath Site (Right radial access site is C/D/I.)
Data Reviewed
-
Date of Service: September 29, 2023
Medical Decision Making: Reviewed Test Results, Independent Historian Assessment and Test Interpretation
EKG: Tracing Personally Visualized and interpreted and Report Reviewed by me
Echo: Report Reviewed by me
X-Ray/CT/US/MRI/NUC/PET: Image Personally Visualized and interpreted and Report Reviewed by me
Medical Tests (PFT, Pathology etc): Image Personally Visualized and interpreted and Report Reviewed by me
Labs: Labs Reviewed by me
[2023-09-29 11:31] VITALS: BP 124/79
--- NOTE | 2023-09-29 11:57 | PTCARENOTE ---
D/C instructions given to patient and both verbalizes understanding. patient doesn't like taking 20mg of her statin due to muscle aches, Dr. Reyes aware and wants patient on that dosage. INT D/C'd, telemetry d/C'd, personal belongings
packed and sent home with patient. D/C to home via wc accompanied by vol. services.
--- NOTE | 2023-09-29 13:28 | W.DCSUMMARY ---
Discharge Summary
Discharge Data
Date of Admission: 09/27/23
Date of Discharge: 09/29/23
-
Pending Results: No
Hospital Course
Primary diagnoses:
Acute type II non-ST elevation myocardial infarction s/p angioplasty and stent x2 to Right Coronary artery
Secondary diagnoses:
Type 2 diabetes mellitus
Hypothyroidism
Hyperlipidemia
Obesity due to excess calories
Consultants:
Cardiology
Imaging:
CXR: No active cardiopulmonary disease.
Echo: Normal biventricular size and systolic function without regional wall motion
abnormality.
Mild concentric left ventricular hypertrophy.
No significant valvular disease.
No prior study available for comparison.
Hospital course: 68-year-old female who presented with chief complaint of chest pain as outlined in H&P done on admission. ECG (read by me): NSR @ 86, nl axis/intervals (QTc borderline at 452ms), no acute ST/TW changes. Troponins peaked at 0.131.
Patient was on heparin and nitroglycerin drips. Echo above. She had a cardiac cath on September 28, 2023 and had angioplasty and stenting x 2 to the right coronary artery. Patient was placed on aspirin, statin, beta-brennon, Plavix. She was
discharged in medically stable condition.
Discharge Plan
-
Patient Disposition: Home (Routine Discharge)
Discharge Diagnosis/Procedures: Acute type II non-ST elevation myocardial infarction, s/p angioplasty and stent x2 to Right Coronary artery
Condition: Good
Diet: Diabetic, Carb Controlled
Activity: No restrictions
Driving Restrictions: No driving for 24 hours
Bathing Restrictions: None
Other Services: Cardiac Rehab
Stand Alone Forms: DC Instructions- Cath/EP Lab
Referrals:
[facility] [Outside] - 11/13/23 1:00 am
(Cardiac Rehab Orientation and First Exercise appointment is on Monday November 13, 2023 at 1pm.
The Cardiac Rehab gym is located on the first floor of the [facility].)
Sussy Green CRNP [Specified Professional Personl] - 10/16/23 9:20 am (Cardiology followup appointment)
Awilda Jacinto MD [Family Provider] - in less than 1 week
Additional Discharge Medication Instructions: HOLD metformin post cath- OK to resume on 09/29 in AM
Prescriptions:
New
clopidogrel 75 mg Tablet
75 mg PO DAILY Qty: 30 0RF
nitroglycerin 0.4 mg Tablet, Sublingual
0.4 mg sublingual [id number] PRN (Reason: chest pain) Qty: 20 0RF
aspirin [Children's Aspirin] 81 mg Tablet,Chewable
81 mg PO DAILY Qty: 0 0RF
lisinopril 5 mg Tablet
5 mg PO DAILY Qty: 30 0RF
metoprolol succinate 25 mg Tablet Extended Release 24 Hr
25 mg PO DAILY Qty: 30 0RF
pantoprazole 40 mg Tablet,Delayed Release (Dr/Ec)
40 mg PO DAILY Qty: 30 0RF
rosuvastatin 20 mg tablet
20 mg PO DAILY Qty: 30 0RF
Continued
metformin 500 mg Tablet
500 mg PO BID
famotidine [Pepcid AC] 10 mg Tablet
10 mg PO DAILY
cetirizine [Zyrtec] 10 mg Tablet
10 mg PO DAILY
levothyroxine [Synthroid] 112 mcg Tablet
112 mcg PO DAILY
Discontinued
aspirin 325 mg Tablet
325 mg PO DAILY
rosuvastatin [Crestor] 5 mg Tablet
5 mg PO DAILY
Discharge Orders:
Discharge Patient (As Directed); Ordered 09/29/23
Ordered By: Jerod Chirinos
Care Plan Goals
Care Plan Goals:
Problem: Readiness for enhanced knowledge related to diagnosis and treatment plan
Goal: Understand your diagnosis and treatment plan needs, including medications if applicable.
Instructions: Know your diagnosis, underlying causes and treatment plan options, including medications if applicable. Consult with your health care team to learn about your diagnosis and treatment plan, including medications if applicable.
Discharge Date and Time
Discharge Date/Time: 09/29/23 12:26
Print Language: MALAWIAN
== END 2023-09-29 12:26 | disposition home or self-care (01) | DRG 322 ==
LOC: IVU 11:09
PROVIDERS: Internal Medicine Cardiovascular Disease; Registered Nurse; ADMITTING PHYSICIAN Internal Medicine; ATTENDING PHYSICIAN Internal Medicine; CONSULT PHYSICIAN Internal Medicine; EMERGENCY PHYSICIAN Emergency Medicine; FAMILY PHYSICIAN Internal Medicine
PROC: 4A023N7 Measurement of Cardiac Sampling and Pressure, Left Heart, Percutaneous Approach (ICD-10-PCS; 2023-09-28)
PROC: 027035Z Dilation of Coronary Artery, One Artery with Two Drug-eluting Intraluminal Devices, Percutaneous Approach (ICD-10-PCS; 2023-09-28)
PROC: B2111ZZ Fluoroscopy of Multiple Coronary Arteries using Low Osmolar Contrast (ICD-10-PCS; 2023-09-28)
DX: I21.4 Non-ST elevation (NSTEMI) myocardial infarction (principal); I25.10 Atherosclerotic heart disease of native coronary artery without angina pectoris; E11.9 Type 2 diabetes mellitus without complications; E78.00 Pure hypercholesterolemia, unspecified; E03.9 Hypothyroidism, unspecified; I10 Essential (primary) hypertension; E66.09 Other obesity due to excess calories; Z82.49 Family history of ischemic heart disease and other diseases of the circulatory system; Z79.82 Long term (current) use of aspirin; Z79.890 Hormone replacement therapy; Z79.84 Long term (current) use of oral hypoglycemic drugs; Z68.36 Body mass index [BMI] 36.0-36.9, adult
CPT/HCPCS: 71046; 80048; 80053; 80061; 82962; 83036; 83690; 84484; 85025; 85027; 85347; 85379; 85730; 93005; 93306; 93458; 99285; C1725; C1874; C1887; C1894; C9600; Q9967

== ENCOUNTER 2023-11-18 15:06 | Outpatient (RCR) | payer OTHER, MEDICARE, SELFPAY ==
[2023-11-13 14:26] LABS: Glucose - Point of Care 169 mg/dl (70-99)
[2023-11-13 15:24] LABS: Glucose - Point of Care 134 mg/dl (70-99)
[2023-11-16 14:48] LABS: Glucose - Point of Care 167 mg/dl (70-99)
[2023-11-16 15:40] LABS: Glucose - Point of Care 129 mg/dl (70-99)
[2023-11-18 14:43] LABS: Glucose - Point of Care 177 mg/dl (70-99)
[2023-11-18 15:34] LABS: Glucose - Point of Care 156 mg/dl (70-99)
== END 2023-11-18 23:59 | disposition home or self-care (01) ==
LOC: CRHB 15:06
PROVIDERS: ATTENDING PHYSICIAN Internal Medicine; FAMILY PHYSICIAN Internal Medicine
DX: I25.10 Atherosclerotic heart disease of native coronary artery without angina pectoris (principal); Z95.5 Presence of coronary angioplasty implant and graft; I25.2 Old myocardial infarction
CPT/HCPCS: 82962; 93797; 93798

== ENCOUNTER 2023-12-16 15:13 | Outpatient (RCR) | payer OTHER, MEDICARE, SELFPAY ==
[2023-11-20 14:58] LABS: Glucose - Point of Care 119 mg/dl (70-99)
[2023-11-20 15:55] LABS: Glucose - Point of Care 114 mg/dl (70-99)
[2023-11-23 14:52] LABS: Glucose - Point of Care 141 mg/dl (70-99)
[2023-11-23 15:48] LABS: Glucose - Point of Care 102 mg/dl (70-99)
[2023-11-25 14:39] LABS: Glucose - Point of Care 90 mg/dl (70-99)
[2023-11-25 15:35] LABS: Glucose - Point of Care 116 mg/dl (70-99)
== END 2023-12-16 23:59 | disposition home or self-care (01) ==
LOC: CRHB 15:13
PROVIDERS: ATTENDING PHYSICIAN Internal Medicine
DX: I25.10 Atherosclerotic heart disease of native coronary artery without angina pectoris (principal); Z95.5 Presence of coronary angioplasty implant and graft; I25.2 Old myocardial infarction
CPT/HCPCS: 82962; 93797; 93798; G0422; G0423

== ENCOUNTER 2023-12-25 14:21 | Outpatient (RCR) | payer OTHER, MEDICARE, SELFPAY | END 2023-12-25 16:16 | disposition other institution (70) | LOC: CRHB 14:21 | PROVIDERS: ATTENDING PHYSICIAN Internal Medicine | DX: I25.10 Atherosclerotic heart disease of native coronary artery without angina pectoris (principal); Z95.5 Presence of coronary angioplasty implant and graft; I25.2 Old myocardial infarction | CPT/HCPCS: 93797; 93798 ==

== ENCOUNTER → 2024-01-13 15:04 | Outpatient (REF) | payer OTHER, MEDICARE, SELFPAY | LOC: WDC 15:04 | PROVIDERS: ATTENDING PHYSICIAN Internal Medicine | DX: Z12.39 Encounter for other screening for malignant neoplasm of breast (principal); Z12.31 Encounter for screening mammogram for malignant neoplasm of breast | CPT/HCPCS: 77063; 77067 ==

== ENCOUNTER → 2024-04-05 13:33 | Outpatient (REF) | payer OTHER, MEDICARE, SELFPAY | LOC: RAD 13:33 | PROVIDERS: ATTENDING PHYSICIAN Internal Medicine | DX: E11.9 Type 2 diabetes mellitus without complications (principal); R10.31 Right lower quadrant pain | CPT/HCPCS: 76830; 76856 ==

== ENCOUNTER → 2025-01-02 16:37 | Outpatient (REF) | payer OTHER, SELFPAY | LOC: RAD 16:37 | PROVIDERS: ATTENDING PHYSICIAN Internal Medicine | DX: M79.602 Pain in left arm (principal) | CPT/HCPCS: 73030; 73060 ==

== ENCOUNTER → 2025-03-14 14:35 | Outpatient (REF) | payer OTHER, MEDICARE, SELFPAY | LOC: RAD 14:35 | PROVIDERS: ATTENDING PHYSICIAN Internal Medicine | DX: E11.9 Type 2 diabetes mellitus without complications (principal); R10.31 Right lower quadrant pain | CPT/HCPCS: 76830; 76856 ==

== ENCOUNTER → 2025-04-05 06:36 | Outpatient (REF) | payer OTHER, MEDICARE, SELFPAY | LOC: MRI 3T 06:36 | PROVIDERS: ATTENDING PHYSICIAN Specialist; FAMILY PHYSICIAN Internal Medicine | DX: M25.562 Pain in left knee (principal) | CPT/HCPCS: 73721 ==